=== PATIENT | female | born 1980 | race African-American/Black ===

== ENCOUNTER 2017-09-29 15:29 | Emergency (ER) | payer MEDICAID, OTHER ==
[~2017-09-29] VITALS: Ht 170.2 cm; Wt 108.0 kg
[~2017-09-29 15:29] MED LIST: IBUP-1649 PO
[2017-09-29 20:24] LABS: BASOPHILS % 0.3 % (0.0-2.0); EOSINOPHILS % 1.9 % (0.0-5.0); HEMATOCRIT. 32.8 % (36.0-48.0); HEMOGLOBIN. 10.6 g/dL (12.0-16.0); LYMPHOCYTES % 38.2 % (20.0-50.0); MEAN CORPUSCULAR HEMOGLOBIN 26.2 pg (28.0-32.0); MEAN CORPUSCULAR VOLUME 81.4 fL (81.0-99.0); MONOCYTES % 7.6 % (2.0-8.0); PLATELET 371 x1000/uL (130-400); RED BLOOD CELL COUNT 4.03 mill/uL (4.2-5.4); RED CELL DISTRIBUTION WIDTH 16.1 % (11.6-14.6)
[2017-09-29 20:25] LABS: CHLORIDE 107 mEq/L (98-107)
[2017-09-29 20:29] LABS: CARBON DIOXIDE 28 mEq/L (21-32)
[2017-09-29 20:31] LABS: HCG SCREEN NEGATIVE
[2017-09-29 21:00] VITALS: BP 129/74
[2017-09-29] MEDS ORDERED: ONDANSETRON 4MG ODT PO ONE (21:00)
== END 2017-09-29 21:07 | disposition home or self-care (01) ==
LOC: ER 17:04
DX: R21 Rash and other nonspecific skin eruption (principal); Z98.890 Other specified postprocedural states
CPT/HCPCS: 36415; 80048; 84703; 85025; 99284; Q0162